=== PATIENT | male | born 1960 | race Caucasian/White ===

== ENCOUNTER 2025-02-02 06:31 | Day surgery (SDC) | payer OTHER, SELFPAY ==
[2025-01-29 11:49] LABS: Hematocrit 46.5 % (39.0-52.0); Hemoglobin 15.2 g/dL (13.0-18.0); Mean Corp Hgb Conc. 32.7 g/dL (33.0-37.0); Mean Corpuscular Volume 89.3 fL (80.0-94.0); Platelet Count 260 10^3/uL (130-400); Red Cell Dist. Width 13.6 % (11.5-14.5)
[2025-01-29 12:48] LABS: Blood Urea Nitrogen 20 mg/dl (9-20); Calcium 9.4 mg/dl (8.4-10.2); Carbon Dioxide 27 mmol/L (22-30); Chloride 105 mmol/L (98-107); Glucose 101 mg/dl (70-99); Potassium 5.3 mmol/L (3.5-5.1); Sodium 136 mmol/L (135-145); eGFR > 60.00
[2025-01-29 13:54] VITALS: BMI 24.9
[2025-02-02] VITALS (16 sets, daily range): BP systolic 109–153; BP diastolic 66–92; BMI 24.9
[2025-02-02] MEDS: NSS 1000 IV (10:10)
[2025-02-02] MEDS: CYSVIEW KIT 100 MG INTRAVES (10:10)
[2025-02-02] MEDS: VALIUM INJECTION 5 MG IV (12:42)
[2025-02-02] MEDS: DILAUDID 0.5 MG IV ×2 (12:58→13:28)
[2025-02-02] MEDS: SYRINGE NON-PUMP 50 MG IRRIG ×2 (13:44→13:45)
[2025-02-02] MEDS: SYRINGE NON-PUMP 50 ML IRRIG ×2 (13:44→13:45)
== END 2025-02-02 15:33 | disposition home or self-care (01) ==
LOC: SDS 06:31
PROVIDERS: ATTENDING PHYSICIAN Specialist; FAMILY PHYSICIAN Family Medicine; OTHER PHYSICIAN Internal Medicine Interventional Cardiology; PRIMARYCARE PHYSICIAN Internal Medicine
DX: C67.9 Malignant neoplasm of bladder, unspecified (principal)
CPT/HCPCS: 52240; 51720; 80048; 85027; 88307; 93005; A9589; J9201